=== PATIENT | male | born 1975 | race Caucasian/White ===

== ENCOUNTER 2023-07-06 13:20 | Outpatient (CLI) | payer BC | END 2023-07-06 13:21 | disposition home or self-care (01) | LOC: SJX 13:20 | PROVIDERS: ATTEND Nurse Practitioner | DX: N20.2 Calculus of kidney with calculus of ureter (principal); K57.30 Diverticulosis of large intestine without perforation or abscess without bleeding; K59.00 Constipation, unspecified; M43.17 Spondylolisthesis, lumbosacral region | CPT/HCPCS: 74176 ==